=== PATIENT | female | born 1955 | race Caucasian/White ===

== ENCOUNTER → 2017-01-09 | Outpatient (CLI) | payer OTHER ==
[~2017-01-09] MED LIST: ABILIFY5 MG PO; AMBIEN10 M1 PO; B121000 MCG/1 IM; BENTYL10 MG PO; CELEXA20 MG PO; EFFEXOR-XR150 MG PO; HYDROCODONE BIT1 T11 PO; HYDROCODONE BIT1 T28 PO; MOTRIN800 MG PO; SYNTHROID0.125 MG PO; VITAMIN D50000 I1 PO; ZOCOR10 MG PO
== END | disposition home or self-care (01) ==
LOC: RAD 09:42
DX: R06.02 Shortness of breath (principal); M47.894 Other spondylosis, thoracic region; M41.84 Other forms of scoliosis, thoracic region